=== PATIENT | male | born 1985 | race American Indian/Alaskan Native ===

== ENCOUNTER 2023-11-11 08:15 | Emergency (ER) | payer OTHER, SELFPAY ==
[2023-11-11 08:17] VITALS: BP 129/86
--- NOTE | 2023-11-11 08:20 | ED.GENMED ---
History of Present Illness
General
Chief Complaint: Dizziness
Time Seen by Provider: 11/11/23 08:20
Travel History
Have you had any contact with someone who has COVID-19?: No
Do you have any symptoms of coronavirus? Fever > 100 degrees, chills, cough, shortness of breath, sore throat, loss of taste or smell, muscle aches, or headache?: No
History of Present Illness
History of Present Illness:
HPI: Patient presents with dizziness associate with nausea and vomiting. He states he had too much alcohol yesterday. He states he does not drink on a daily basis. He has had similar episodes in the past when he drank alcohol. He has some
ongoing dizziness but was concerned because he had some upper abdominal discomfort that he relates to 'too much acid'. He does not take any medication for stomach acid. He states he is under a lot of stress recently going through divorce and still
has some ongoing nausea.
EXAM:
GENERAL: Well appearing in no distress
HEENT: Moist oral mucosa
CARDIOVASCULAR: No murmurs, normal heart rate, regular rhythm, No chest wall tenderness
PULMONARY: No respiratory distress, breath sounds are clear and equal
ABDOMEN: Soft with no peritoneal signs, no tenderness
NEUROLOGIC: Excellent strength all extremities, no coordination deficits, patient was able to walk with no ataxia
PSYCHIATRIC: Appropriate mental status, normal insight and judgement
EXTREMITIES: Nontender, no edema, moves all extremities equally
SKIN: No rash, no lesions
TIME OF INITIAL ENCOUNTER: 8:30 AM
NUMBER AND COMPLEXITY OF PROBLEMS ADDRESSED AT THE ENCOUNTER
� Chronic conditions affecting care: Has had appendectomy
� Acute Exacerbation and/or Progression of Chronic Illness: This is an acute problem but has similar episode in the past
� Differential Diagnosis includes: Vertigo, alcohol related vertigo, gastritis, GERD
AMOUNT AND/OR COMPLEXITY OF DATA TO BE REVIEWED AND ANALYZED
� I performed an independent evaluation of and my interpretation is:
EKG: Sinus 82, no acute ST abnormality
CT:
X-rays:
Laboratory Studies: White count 5.4, hemoglobin 12.7, chemistries unremarkable
Other:
� Review of other/old records:
� Clinical information was obtained by an independent historian:
� Prescriptions/Medications Considered but not given:
� Further testing considered but not performed: Considered CT imaging however the patient does not have any significant pain currently and has a soft abdomen
RISK OF COMPLICATIONS AND/OR MORBIDITY OR MORTALITY OF PATIENT MANAGEMENT
� Social determinants of health affecting care: Lives at home, going through divorce, drinks alcohol when stressed
� Discussion with other providers: None needed.
� Escalation of care including admission/observation vs risk of discharge considered: Will try IV fluids, along with Zofran and Pepcid and will also check labs. He has a nonfocal neurologic examination. On reassessment at 9:30
AM, the patient is comfortable in appearance and in no distress. Vital signs are unremarkable. He is sinus on the monitor. Symptoms may be related to alcohol use from yesterday however he does not clinically appear intoxicated. His MCV is
normal. Recommended PPI and I also sent a prescription for Zofran.
Phy Exam
Physical Exam
Physical Exam:
See HPI
Course
Orders/Labs/Results
Orders:
Orders
11/11/23 08:33
0.9% Sodium Chloride 1000 ml [Nss] 1,000 ml IV BOLUS
Famotidine [Pepcid] 20 mg IV NOW STA
Ondansetron Injectable [Zofran] 4 mg IV NOW STA
11/11/23 08:40
Electrocardiogram (*1) Urgent
Reason for Study: Abdominal Pain
EKG- Treatment ONCE
11/11/23 08:52
Complete Blood Count/With Diff Urgent
Comprehensive Metabolic Panel Urgent
Lipase Urgent
Magnesium Urgent
Abnormal Lab Results
11/11/23
08:52
RBC 4.50 L 10^6/uL
(4.70-6.10)
Hgb 12.7 L g/dL
(13.0-18.0)
Hct 37.9 L %
(39.0-52.0)
Creatinine 0.6 L mg/dL
(0.7-1.3)
11/11/23 08:52
11/11/23 08:52
Vital Signs
Initial and Last Documented VS:
Initial Vital Signs
Temp Pulse Resp BP Pulse Ox
98.0 F 72 18 129/86 98
11/11/23 08:17 11/11/23 08:17 11/11/23 08:17 11/11/23 08:17 11/11/23 08:17
Last Documented Vital Signs
Temp Pulse Resp BP Pulse Ox
98.0 F 72 18 129/86 98
11/11/23 08:17 11/11/23 08:17 11/11/23 08:17 11/11/23 08:17 11/11/23 08:17
*Critical Care Note
Total Time (30-74mins, 75-104mins- exclusive of procedures): Not Applicable
ED Attending Note
-
Portions of this chart may have been created with voice recognition software.� Occasional wrong word or��sound alike� substitutions may have occurred due to the inherent limitations of voice recognition software.
Discharge Plan
Departure
Patient Disposition: Home (Routine Discharge)
Date of Disposition: 11/11/23
Time of Disposition: 09:38
Patient with high blood pressure during this ER visit?: Yes
Discharge Problem:
Dizziness
Instructions: Dizziness, BLOOD PRESSURE
Prescriptions:
New
ondansetron HCl 4 mg tablet
4 mg PO Q6H PRN (Reason: nausea and vomiting) Qty: 14 0RF
Referrals:
NONE,* [Family Provider] -
Activity Restrictions/Additional Instructions:
Your blood work is normal. We checked for pancreatitis and liver issues and both of those were negative. EKG is normal. White blood cell count is normal. Hemoglobin is just very slightly low at 12.7. I recommend a 2-week course of
[id number] omeprazole. I also sent a prescription for Zofran (nausea medicine) to your pharmacy. Follow-up your primary care doctor.
Interventions
Interventions:
*Risk Screen - Suicide Last Done: 11/11/23 08:17
*General Assessment Last Done: 11/11/23 08:17
*Neglect/Abuse Screening Last Done: 11/11/23 08:17
*ED COVID-19 Vaccine History Last Done: 11/11/23 08:17
Discharge Date and Time
Print Language: CZECH
[2023-11-11 08:30] VITALS: BMI 22.7
[2023-11-11 08:33] VITALS: BP 129/90
[2023-11-11] MEDS: ZOFRAN 4 MG IV (08:48)
[2023-11-11] MEDS: PEPCID 20 MG IV (08:48)
[2023-11-11] MEDS: NSS 1000 IV (08:49)
[2023-11-11 09:00] VITALS: BP 129/73
[2023-11-11 09:03] LABS: % Basophils 1.1 % (0-2); % Eosinophils 0.7 % (0-6); % Immature Granulocytes 0.2 % (0-0.5); % Lymphocytes 43.9 % (20.5-51.1); % Neutrophils 48.1 % (42.2-75.2); Absolute Basophils 0.1 10^3/uL (0-0.2); Absolute Lymphocytes 2.4 10^3/uL (1.2-3.4); Absolute Monocytes 0.3 10^3/uL (0.1-0.6); Absolute Neutrophils 2.6 10^3/uL (1.4-6.5); Hematocrit 37.9 % (39.0-52.0); Hemoglobin 12.7 g/dL (13.0-18.0); Mean Corp Hgb Conc. 33.5 g/dL (33.0-37.0); Mean Corpuscular Hgb 28.2 pg (27.0-31.0); Mean Corpuscular Volume 84.2 fL (80.0-94.0); Mean Platelet Volume 8.8 fL (7.4-10.4); Nucleated Red Blood Cells % 0 % (-); Platelet Count 229 10^3/uL (130-400); Red Cell Dist. Width 13.1 % (11.5-14.5); White Blood Cell Count 5.4 10^3/uL (4.8-10.8)
[2023-11-11 09:27] LABS: ALT (SGPT) 21 U/L (0-50); AST (SGOT) 35 U/L (17-59); Albumin 4.6 g/dl (3.5-5.0); Alkaline Phosphatase 103 U/L (38-126); Blood Urea Nitrogen 9 mg/dl (9-20); Calcium 9.7 mg/dl (8.4-10.2); Carbon Dioxide 24 mmol/L (22-30); Chloride 102 mmol/L (98-107); Glucose 91 mg/dl (70-99); Magnesium 1.8 mg/dl (1.6-2.3); Potassium 3.9 mmol/L (3.5-5.1); Sodium 139 mmol/L (135-145); Total Bilirubin 1.2 mg/dl (0.2-1.3); Total Protein 7.7 g/dl (6.3-8.2); eGFR > 60.00
[2023-11-11 09:35] LABS: Lipase 144 U/L (23-300)
[2023-11-11 10:00] VITALS: BP 121/90
[2023-11-11 10:15] VITALS: BP 120/90
--- NOTE | 2023-11-11 10:20 | EDRN ---
Reviewed discharge instructions with patient. Verbalized understanding. Ambulated with steady gait to the lobby.
== END 2023-11-11 10:20 | disposition home or self-care (01) ==
LOC: EMR 08:15
PROVIDERS: EMERGENCY PHYSICIAN Emergency Medicine
DX: R42 Dizziness and giddiness (principal); R03.0 Elevated blood-pressure reading, without diagnosis of hypertension
CPT/HCPCS: 99284; 96374; 96375; 96361; 80053; 83690; 83735; 85025; 93005

== ENCOUNTER 2025-05-10 04:07 | Emergency (ER) | payer OTHER, SELFPAY ==
[2025-05-10 04:10] VITALS: BP 135/89
--- NOTE | 2025-05-10 04:28 | ED.GENMED ---
History of Present Illness
General
Chief Complaint: Back Pain
Source: patient
Exam Limitations: none
Time Seen by Provider: 05/10/25 04:17
Nursing documentation reviewed up to this point in time: agreed with
History of Present Illness
History of Present Illness:
39-year-old male past medical history of chronic back pain presenting to the emergency department today with concerns of ongoing right-sided back pain. Had a few drinks of alcohol last night which irritated his stomach also has had some episodes of
vomiting. Denies any ongoing abdominal pain chest pain shortness of breath. Some pain is rating down the right leg
Review of Systems
Review of Systems
Allergies reviewed?: Yes
All Other Systems: ROS reviewed and negative except as documented in HPI and ROS
Phy Exam
Physical Exam
Physical Exam:
GENERAL: Alert , in no apparent distress
EYE: pupils equal and reactive
NECK: Supple, no significant adenopathy.
ENT: o/p clr, mmm.
CARDIAC: Regular rate and rhythm .
LUNGS: Clear breath sounds bilaterally, no acute respiratory distress, no wheezes/rales/rhonchi
ABDOMEN: Soft, without focal tenderness, no r/g, no cvat
NEUROLOGICAL: Alert and oriented, no focal neuro deficits
SKIN: Warm and dry, skin intact.
MUSCULOSKELETAL: No edema, well perfused.
PSYCH: Normal and appropriate interaction.
Course
Orders/Labs/Results
Orders:
Orders
05/10/25 04:28
Acetaminophen [Tylenol] 1,000 mg PO NOW STA
Ketorolac [Toradol] 30 mg IM NOW STA
Ondansetron Orally Disint [Zofran Odt (Orally Disintegrating)] 4 mg PO NOW STA
05/10/25 05:23
Meclizine [Antivert] 25 mg PO NOW STA
Ondansetron Orally Disint [Zofran Odt (Orally Disintegrating)] 4 mg PO NOW STA
Vital Signs
Initial and Last Documented VS:
Initial Vital Signs
Temp Pulse Resp BP
97.7 F 91 22 135/89
05/10/25 04:10 05/10/25 04:10 05/10/25 04:10 05/10/25 04:10
Last Documented Vital Signs
Temp Pulse Resp BP Pulse Ox
97.7 F 84 18 135/89 99
05/10/25 04:10 05/10/25 06:27 05/10/25 06:27 05/10/25 04:10 05/10/25 06:27
MDM/Problems Addressed
MDM/Problems Addressed:
39-year-old male presenting to the emergency department today with concerns of back pain rating on the right leg. Does have a history of chronic back pain. Also has had some nausea did drink alcohol last night believes it secondary to this. No
abdominal pain to palpation. Normal neurologic evaluation. No symptoms consistent with cauda equina or epidural abscess. Vital signs normal. Patient was given Toradol and Tylenol to help with pain. Patient did have improvement of symptoms. He
was written for medication and follow-up for pain management. Return Precautions given.
*Pulse Oximetry
Nasal Cannula flow liters per minute: 97
Oxygen Mode of Delivery: Room air
Patient hypoxic: no (99)
*Critical Care Note
Total Time (30-74mins, 75-104mins- exclusive of procedures): Not Applicable
ED Attending Note
-
Portions of this chart may have been created with voice recognition software.� Occasional wrong word or��sound alike� substitutions may have occurred due to the inherent limitations of voice recognition software.
Discharge Plan
Departure
Patient Disposition: Home (Routine Discharge)
Date of Disposition: 05/10/25
Time of Disposition: 06:12
Patient with high blood pressure during this ER visit?: No
Condition: Good
Covid-19: Not Applicable
Discharge Problem:
Back pain
Instructions: Low Back Pain (DC)
Prescriptions:
New
tizanidine [Zanaflex] 4 mg capsule
4 mg PO BID PRN (Reason: muscle spasticity) Qty: 7 0RF
naproxen 500 mg tablet
500 mg PO BID PRN (Reason: Pain) 7 Days Qty: 14 0RF
No Action
ondansetron HCl 4 mg tablet
4 mg PO Q6H PRN (Reason: nausea and vomiting) Qty: 14 0RF
Referrals:
Pietro Jean MD [Active, Anesthesiology] - Follow up in 5-7 days
NONE,* [Family Provider, Internal Medicine]
Activity Restrictions/Additional Instructions:
You came to the emergency department today with concerns of back pain. Please take the prescribed medications follow-up closely with the back doctor. Return for any worsening, new or concerning symptoms.
Interventions
Interventions:
*Risk Screen - Suicide Last Done: 05/10/25 04:10
*General Assessment Last Done: 05/10/25 04:24
*Neglect/Abuse Screening Last Done: 05/10/25 04:24
*ED COVID-19 Vaccine History Last Done: 05/10/25 04:24
*ED Influenza Vaccine History Last Done: 05/10/25 04:24
[facility] Fall Risk Assessment Tool Last Done: 05/10/25 04:24
*Nursing Disposition Last Done: 05/10/25 06:27
ED-Musculoskeletal Assessment Last Done: 05/10/25 04:25
Discharge Date and Time
Discharge Date/Time: 05/10/25 06:32
Print Language: MALIAN
[2025-05-10] MEDS: TYLENOL 1000 MG PO (04:34)
[2025-05-10] MEDS: ZOFRAN ODT (ORALLY DISINTEGRATING) 4 MG PO ×2 (04:34→05:40)
[2025-05-10] MEDS: TORADOL 30 MG IM (04:34)
[2025-05-10] MEDS: ANTIVERT 25 MG PO (05:40)
== END 2025-05-10 06:32 | disposition home or self-care (01) ==
LOC: EMR 04:07
PROVIDERS: EMERGENCY PHYSICIAN Student in an Organized Health Care Education/Training Program
DX: M54.9 Dorsalgia, unspecified (principal); G89.29 Other chronic pain
CPT/HCPCS: 96372; 99284